=== PATIENT | female | born 1995 ===

== ENCOUNTER 2017-10-25 20:51 | Emergency (ER) | payer SELFPAY ==
[2017-10-25 21:09] VITALS: BP 122/83; PULSE 91; RESP 18; TEMP 98.7; O2SAT 99
--- NOTE | 2017-10-25 21:39 | C.PDOC ---
History Of Present Illness 22-year-old female, presents to the emergency department with complaints of left ear pain since yesterday, described as sharp pain with associated discharge and decrease in hearing. Denies fever, recent travel, prior infections , neck pain or dizziness. Time Seen by Provider: 10/25/17 21:11 Chief Complaint (Nursing): ENT Problem History Per: Patient History/Exam Limitations: no limitations Onset/Duration Of Symptoms: Days Past Medical History Reviewed: Historical Data, Nursing Documentation, Vital Signs Vital Signs: Last Vital Signs Temp 98.7 F 10/25/17 21:07 Pulse 91 H 10/25/17 21:07 Resp 18 10/25/17 21:07 BP 122/83 10/25/17 21:07 Pulse Ox 99 10/25/17 21:40 Family History: States: No Known Family Hx - Social History Hx Alcohol Use: Yes Hx Substance Use: No - Immunization History Hx Tetanus Toxoid Vaccination: No Hx Influenza Vaccination: No Hx Pneumococcal Vaccination: No Review Of Systems Constitutional: Negative for: Fever ENT: Positive for: Ear Pain, Ear Discharge. Negative for: Throat Pain Respiratory: Negative for: Cough Physical Exam - Physical Exam Appears: Non-toxic, No Acute Distress Skin: Normal Color, Warm, Dry, No Rash Head: Atraumatic, Normacephalic Eye(s): bilateral: Normal Inspection, EOMI Ear(s): Left: Normal (no erythema), Right: Other (Ruptured TM and scant blood) Nose: Normal, No Flaring, No Discharge Oral Mucosa: Moist Lips: Normal Appearing Throat: No Erythema, No Exudate Neck: Normal ROM Chest: Symmetrical Extremity: Bilateral: Atraumatic, Normal ROM Neurological/Psych: Oriented x3, Normal Speech ED Course And Treatment O2 Sat by Pulse Oximetry: 99 (RA) Pulse Ox Interpretation: Normal Medical Decision Making Medical Decision Making: Patient informed of TM rupture, instructed to avoid anything into ear. Rx given , f/u with ENT. Disposition Counseled Patient/Family Regarding: Diagnosis, Need For Followup, Rx Given - Disposition Referrals: Douglas Last MD [Staff Provider] - Disposition: HOME/ ROUTINE Disposition Time: 21:54 Condition: GOOD Additional Instructions: Avoid water or anything in ear take pain medicine as needed take antibiotic follow up with ENT Prescriptions: Amoxicillin [Amoxil 500 mg Cap] 500 mg PO BID #20 cap Instructions: Ruptured Eardrum (DC) Forms: [employer] (Angolan) - POA Present On Arrival: None - Clinical Impression Clinical Impression: Tympanic membrane perforation - Scribe Statement The provider has reviewed the documentation as recorded by the Scribe (Cammy Pal) All medical record entries made by the Scribe were at my direction and personally dictated by me. I have reviewed the chart and agree that the record accurately reflects my personal performance of the history, physical exam, medical decision making, and the department course for this patient. I have also personally directed, reviewed, and agree with the discharge instructions and disposition.
== END 2017-10-25 21:56 | disposition home or self-care (01) ==
LOC: C.ER 20:51
DX: H72.92 Unspecified perforation of tympanic membrane, left ear (principal)